=== PATIENT | male | born 1960 | race Caucasian/White ===

== ENCOUNTER → 2016-07-02 | Outpatient (REF) | payer MEDICARE ==
[2016-07-02 16:33] LABS: MEAN CORPUSCULAR HEMOGLOBIN 33.6 pg (27.0-33.0); MEAN CORPUSCULAR VOLUME 102.1 fl (80.0-96.0); RED CELL DISTRIBUTION WIDTH 13.4 % (11.5-14.5); WHITE BLOOD COUNT 5.4 K/mm3 (4.0-10.0)
[2016-07-02 16:56] LABS: ALBUMIN/GLOBULIN RATIO 1.14 (1.00-1.93); ALKALINE PHOSPHATASE 101 U/L (45-117); ALT/SGPT 70 U/L (12-78); ANION GAP 7 MEQ/L (8-16); AST/SGOT 48 U/L (15-37); BILIRUBIN,TOTAL 0.2 MG/DL (0.2-1.0); BLOOD UREA NITROGEN 10 MG/DL (7-18); CALCIUM LEVEL 8.7 MG/DL (8.5-10.1); CARBON DIOXIDE LEVEL 29 MEQ/L (21-32); CHLORIDE LEVEL 108 MEQ/L (98-107); CREATININE FOR GFR 1.12 MG/DL (0.70-1.30); GLOMERULAR FILTRATION RATE > 60.0 (>56); GLUCOSE, FASTING 77 MG/DL (70-105); POTASSIUM SERUM 4.6 MEQ/L (3.5-5.1); SODIUM LEVEL 144 MEQ/L (136-145); TOTAL PROTEIN 7.5 GM/DL (6.4-8.2)
[2016-07-09 08:45] LABS: BENZODIAZEPINES, URINE SCREEN See Final Results ng/mL (Cutoff=200); METHADONE, URINE SCREEN Negative ng/mL (Cutoff=300); OPIATES, URINE Negative ng/mL (Cutoff=300); OXYCODONE URINE Positive (.); pH, URINE 5.5 (4.5-8.9)
== END ==
LOC: M SFHCSACK 11:21
PROVIDERS: ATTEND Physician Assistant
DX: I10 Essential (primary) hypertension (principal); J42 Unspecified chronic bronchitis; F17.200 Nicotine dependence, unspecified, uncomplicated; Z51.81 Encounter for therapeutic drug level monitoring; Z79.891 Long term (current) use of opiate analgesic
CPT/HCPCS: 36415; 80053; 80061; 80307; 82043; 85027; G0463

== ENCOUNTER → 2016-10-15 | Outpatient (REF) | payer MEDICARE ==
[2016-10-25 14:12] LABS: BENZODIAZEPINES, URINE SCREEN See Final Results ng/mL (Cutoff=200); METHADONE, URINE SCREEN Negative ng/mL (Cutoff=300); OXYCODONE URINE Negative (Cutoff=100)
== END ==
LOC: M SFHCSACK 09:26
PROVIDERS: ATTEND Physician Assistant
DX: Z51.81 Encounter for therapeutic drug level monitoring (principal); Z79.899 Other long term (current) drug therapy; F11.90 Opioid use, unspecified, uncomplicated
CPT/HCPCS: 80307; G0463

== ENCOUNTER → 2017-11-03 | Outpatient (REF) | payer MEDICARE ==
[2017-11-03 15:30] LABS: ALBUMIN 4.2 GM/DL (3.2-5.2); ALBUMIN/GLOBULIN RATIO 1.11 (1.00-1.93); ALKALINE PHOSPHATASE 108 U/L (45-117); ALT/SGPT 48 U/L (12-78); ANION GAP 6 MEQ/L (8-16); AST/SGOT 32 U/L (7-37); BILIRUBIN,TOTAL 0.6 MG/DL (0.2-1.0); BLOOD UREA NITROGEN 9 MG/DL (7-18); CALCIUM LEVEL 9.4 MG/DL (8.5-10.1); CARBON DIOXIDE LEVEL 31 MEQ/L (21-32); CHLORIDE LEVEL 101 MEQ/L (98-107); CREATININE FOR GFR 1.02 MG/DL (0.70-1.30); GLOMERULAR FILTRATION RATE > 60.0 (>56); GLUCOSE, FASTING 114 MG/DL (70-100); POTASSIUM SERUM 4.8 MEQ/L (3.5-5.1); SODIUM LEVEL 138 MEQ/L (136-145)
== END ==
LOC: M SFHCLACO 10:05
DX: I10 Essential (primary) hypertension (principal)
CPT/HCPCS: 80053

== ENCOUNTER 2018-07-20 17:53 | Emergency (ER) | payer MEDICARE ==
[~2018-07-20] VITALS: Ht 170.2 cm; Wt 81.8 kg
[2018-07-20 17:55] VITALS: BP 137/77
[2018-07-20] MEDS ORDERED: SOMA350T PO (20:30)
[2018-07-20] MEDS ORDERED: IBUPROFEN 600 MG TAB PO ONE (20:30)
[2018-07-20] MEDS ORDERED: CARISOPRODOL 350 MG TAB PO ONE (20:30)
[2018-07-20] MEDS ORDERED: NAPR-50 PO (20:30)
== END 2018-07-20 20:46 | disposition home or self-care (01) ==
LOC: M ED 17:53
DX: M54.41 Lumbago with sciatica, right side (principal); I10 Essential (primary) hypertension; F17.200 Nicotine dependence, unspecified, uncomplicated

== ENCOUNTER 2019-09-24 21:52 | Emergency (ER) | payer MEDICARE ==
[~2019-09-24 21:52] MED LIST: NAPR-837 PO; SOMA350T PO
[2019-09-24] MEDS ORDERED: NOREPINEPHRINE 4 MG/4 ML AMP As Ordered ONE (22:01)
[2019-09-24] MEDS ORDERED: NS 1,000 ML IV ONE (22:15)
[2019-09-24 22:37] LABS: MEAN CORPUSCULAR HEMOGLOBIN 31.4 pg (27.0-33.0); MEAN CORPUSCULAR HGB CONC 29.2 g/dl (32.0-36.5); MEAN CORPUSCULAR VOLUME 107.6 fl (80.0-96.0); PLATELET COUNT, AUTOMATED 140 10^3/uL (150-450); RED BLOOD COUNT 2.23 10^6/uL (4.30-6.10)
[2019-09-24 22:47] LABS: INR 1.67; PROTHROMBIN TIME 19.4 SECONDS (11.8-14.0)
[2019-09-24 22:49] LABS: PARTIAL THROMBOPLASTIN TIME 62.7 SECONDS (25.0-38.4)
[2019-09-24 23:05] LABS: EOSINOPHILS 1 % (0-3); LYMPHOCYTES 29 % (16-44); METAMYELOCYTES 3 % (0-0); MONOCYTES 6 % (0-5); MYELOCYTES 5 % (0-0); NEUTROPHILS 51 % (28-66)
[2019-09-24 23:06] LABS: ANISOCYTOSIS 1+; PLATELET ESTIMATE DECREASED (NORMAL)
[2019-09-24 23:07] LABS: POIKILOCYTOSIS 1+
[2019-09-24] MEDS ORDERED: ISOVUE-370 76% 100ML VIAL As Ordered ONE (23:13)
[2019-09-24 23:28] LABS: BLOOD UREA NITROGEN 6 MG/DL (7-18); CALCIUM LEVEL 7.5 MG/DL (8.5-10.1); CARBON DIOXIDE LEVEL 17 MEQ/L (21-32); CHLORIDE LEVEL 103 MEQ/L (98-107); CK-MB VALUE MASS 1.9 NG/ML (<3.6); CPK CREATINE PHOSPHOKINASE 62 U/L (39-308); CREATININE FOR GFR 1.01 MG/DL (0.70-1.30); GLOMERULAR FILTRATION RATE > 60.0 (>56); GLUCOSE, FASTING 223 MG/DL (70-100); MB/CK RELATIVE INDEX 3.06 (< OR =4); POTASSIUM SERUM 4.5 MEQ/L (3.5-5.1); SODIUM LEVEL 138 MEQ/L (136-145); TROPONIN I 0.03 NG/ML (< 0.10)
[2019-09-24] MEDS ORDERED: METAL LOCK LOOP XX ONE (23:35)
--- NOTE | 2019-09-24 23:57 | REPVR ---
PROCEDURE INFORMATION: Exam: CT Head Without Contrast Exam date and time: 09/24/2019 11:44 PM Age: 59 years old Clinical indication: Pain; Headache; Additional info: AMS, head injury TECHNIQUE: Imaging protocol: Computed tomography of the head without contrast. Radiation optimization: All CT scans at this facility use at least one of these dose optimization techniques: automated exposure control; mA and/or kV adjustment per patient size (includes targeted exams where dose is matched to clinical indication); or iterative reconstruction. COMPARISON: CT Head without contrast 12/11/2014 3:53 PM FINDINGS: Brain: Normal. No hemorrhage. Unremarkable white matter. No mass effect. Ventricles: Normal. No ventriculomegaly. Bones/joints: Unremarkable. No acute fracture. Sinuses: Visualized sinuses are unremarkable. No fluid levels. Mastoid air cells: Visualized mastoid air cells are well aerated. Soft tissues: Unremarkable. IMPRESSION: No acute intracranial abnormality. Electronically signed by: Jayce Puri On 09/24/2019 23:56:36 PM
--- NOTE | 2019-09-25 00:10 | REPVR ---
PROCEDURE INFORMATION: Exam: CT Abdomen And Pelvis With Contrast Exam date and time: 09/24/2019 11:44 PM Age: 59 years old Clinical indication: Pain; Additional info: AMS, head injury TECHNIQUE: Imaging protocol: Computed tomography of the abdomen and pelvis with intravenous contrast. Radiation optimization: All CT scans at this facility use at least one of these dose optimization techniques: automated exposure control; mA and/or kV adjustment per patient size (includes targeted exams where dose is matched to clinical indication); or iterative reconstruction. Contrast material: ISO 370; Contrast volume: 100 ml; Contrast route: IV; COMPARISON: No relevant prior studies available. FINDINGS: Tubes, catheters and devices: There is an enteric tube, with the tip in the stomach. Liver: There is hypoattenuation surrounding portal vessels consistent with periportal edema No mass. Gallbladder and bile ducts: There is pericholecystic edema in the gallbladder fossa. No calcified stones. No ductal dilation. Pancreas: There is a hint of peripancreatic edema in the lesser sac. No ductal dilation. Spleen: Unremarkable. No splenomegaly. Adrenals: Unremarkable. No mass. Kidneys and ureters: There is a highly striated nephrogram. There is no evidence of obstructive uropathy or hydronephrosis. No hydronephrosis. Stomach and bowel: There are prominent small bowel loops throughout with air-fluid levels. There is retained stool in the colon and rectum. No mucosal thickening. Appendix: No evidence of appendicitis. Intraperitoneal space: No free air. No significant fluid collection. Vasculature: There are scattered atherosclerotic mural calcifications of the aorta. No abdominal aortic aneurysm. Lymph nodes: No enlarged lymph nodes. Bladder: There is a Crawford catheter in the urinary bladder. Reproductive: Unremarkable as visualized. Bones/joints: No acute fracture. No dislocation. There are multilevel degenerative disc changes of the spine. There is chronic spondylolysis and grade 1 anterior listhesis at L5-S1. Soft tissues: Unremarkable. IMPRESSION: 1. There are findings that may indicate marked pyelonephritis. Clinical correlation for urosepsis suggested. No obstructive uropathy. Findings involving the small bowel could represent ileus, but correlation and follow-up suggested to exclude early or incomplete obstruction. 2. Periportal and pericholecystic edema are nonspecific findings but could be seen with acute pyelonephritis. Clinical correlation for non nephrogenic etiology not limited to primary liver disease suggested. No evidence of biliary stones or biliary obstruction. 3. Edema in the lesser sac could be related to the findings of periportal edema. No pancreatic duct dilatation and no pseudocysts. No additional evidence overt of pancreatitis, but consider clinical correlation. Electronically signed by: Joni Haddad On 09/25/2019 00:10:11 AM
[2019-09-25] MEDS ORDERED: MIDAZOLAM 5MG/ML 1ML VIAL (J2250 PER 1MG) As Ordered ONE (00:45)
--- NOTE | 2019-09-25 00:45 | REPVR ---
PROCEDURE INFORMATION: Exam: CT Angiography Chest With Contrast Exam date and time: 09/24/2019 11:44 PM Age: 59 years old Clinical indication: Pain; Additional info: AMS, head injury, hematemesis, known lung mass TECHNIQUE: Imaging protocol: Computed tomographic angiography of the chest with intravenous contrast. 3D rendering: MIP and/or 3D reconstructed images were created by the technologist. Radiation optimization: All CT scans at this facility use at least one of these dose optimization techniques: automated exposure control; mA and/or kV adjustment per patient size (includes targeted exams where dose is matched to clinical indication); or iterative reconstruction. Contrast material: ISO 370; Contrast volume: 100 ml; Contrast route: IV; COMPARISON: CR PORTABLE CHEST X-RAY 09/24/2019 10:27 PM FINDINGS: Limitations: Respiratory motion artifact degrades the image quality. Tubes, catheters and devices: There is an enteric tube terminating in the body of the stomach. There is an endotracheal tube in the trachea terminating 2.1 cm above the peg. Pulmonary arteries: No pulmonary embolism is identified. There is severe narrowing of the left upper lobar pulmonary artery secondary to the mediastinal/left upper lobe mass. Aorta: There is no thoracic aortic aneurysm, pseudoaneurysm, intramural hematoma, penetrating atherosclerotic ulcer, or dissection. Great vessels off aortic arch: The brachiocephalic artery, imaged proximal portion of the left common carotid artery, and left subclavian artery are intact. No stenosis or occlusion of these vessels is noted. Thyroid: Unremarkable. Tracheobronchial tree: There are secretions in the trachea, left main stem bronchus, and left upper lobe, lingular, and left lower lobe bronchi. Lungs: There is a spiculated left upper lobe mass measuring approximately 7 cm in anterior posterior dimension (image 78 of the axial series 601) with a 16 mm focus of cavitation within the mass and peribronchovascular thickening in the left upper lobe and lingula. There is an additional 2.4 cm spiculated mass in the left upper lobe (image 50 of the axial series 601). There is smooth interlobular septal thickening in the left upper lobe, lingula, right upper lobe, right middle lobe, and right lower lobe. Pleural space: There is a tiny right pneumothorax measuring approximately 7%. No pleural effusion is noted. No calcified pleural plaques are seen. Heart: No cardiomegaly. No pericardial effusion. The ratio of the diameter of the right ventricle to the diameter of the left ventricle measures less than 1, which is within normal limits and there is no evidence for a right ventricular strain. There are coronary artery calcifications. Mediastinum: There is a mediastinal mass in the aortopulmonary window, prevascular, and left hilar region extending into the left upper lobe and measuring approximately 5.8 cm (image 86 of the axial series 601). Lymph nodes: There is a 12 mm enlarged right hilar lymph node (image 101 of the axial series 601). There is also a 13 mm enlarged left hilar lymph node (image 105 of the axial series 601). Bones/joints: There are acute nondisplaced fractures of the right anterior 2nd and 3rd ribs. There are old healed fracture deformities involving the right lateral 8th and 9th ribs. No other fractures are identified. Soft tissues: There is mild bilateral gynecomastia. Other findings: Refer to the CT abdomen and pelvis report on 09/24/2019 for details regarding the abdominal and pelvic findings. IMPRESSION: 1. Tiny right pneumothorax measuring approximately 7%. 2. Acute nondisplaced fractures of the right anterior 2nd and 3rd ribs. 3. 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 4. 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 5. Prevascular, aortopulmonary window, and bilateral hilar lymphadenopathy. 6. No pulmonary embolism. Electronically signed by: Ashu Henderson On 09/25/2019 00:44:42 AM
[2019-09-25 00:55] VITALS: BP 112/60
[2019-09-25] MEDS ORDERED: EPINEPHrine 1MG/10ML SYRINGE 1.5IN IV STA (01:20)
[2019-09-25] MEDS ORDERED: MIDAZOLAM INJ 2MG/2ML VIAL (J2250 PER 1MG) IV ONE (01:30)
[2019-09-25] MEDS ORDERED: NOREPINEPHRINE BITARTRATE 8 MG in D5W 492 ML IV SCH (02:45)
[2019-09-25] MEDS ORDERED: DOPamine HCL 400 MG in IV 1 EA IV SCH (02:45)
--- NOTE | 2019-09-25 10:20 | ECGEPIP ---
[facility] - ED Test Date: 2019-09-25 Pat Name: RIMMA BAZAN Department: Room: - Gender: Male [employer]: : 1960 Requested By: ABUNDIO Trejo Order Number: [id number] Reading MD: Ziggy Gallegos Measurements Intervals Leonard Rate: 109 P: 78 NE: 128 QRS: 95 QRSD: 126 T: 3 QT: 325 QTc: 438 Interpretive Statements SINUS TACHYCARDIA BORDERLINE RIGHT AXIS DEVIATION POOR R WAVE PROGRESSION MODERATE INTRAVENTRICULAR CONDUCTION DELAY BASELINE ARTIFACT AFFECTS INTERPRETATION NO PRIORS FOR COMPARISON Electronically Signed on 09-25-2019 10:19:39 EDT by Ziggy Gallegos
--- NOTE | 2019-09-25 10:36 | REP ---
CHEST, PORTABLE: AP portable view of the chest is performed. Diffuse interstitial infiltrates are seen in the right lung. There is diffuse interstitial infiltrate and mild alveolar infiltrate in the left upper lobe. The heart is normal in size. Endotracheal tube is seen with the tip in the level of the clavicles. A nasogastric tube traverses into the stomach. There is a tiny right basilar pneumothorax. Electronically Signed by Crow Escobar MD 09/25/2019 09:50 P
== END 2019-09-25 02:58 | disposition expired ==
LOC: M ED 21:52
DX: I46.9 Cardiac arrest, cause unspecified (principal); C34.90 Malignant neoplasm of unspecified part of unspecified bronchus or lung; J98.59 Other diseases of mediastinum, not elsewhere classified
CPT/HCPCS: 31500; 36415; 36600; 51701; 70450; 71045; 71275; 74177; 80048; 82550; 82553; 82803; 84484; 85025; 85610; 85730; 92950; 93005; 93041; 96361; 96374; 96375; 99285; J2250; Q9967; U0002